=== PATIENT | male | born 1945 | race Caucasian/White ===

== ENCOUNTER → 2018-09-29 | Outpatient (CLI) | payer OTHER ==
--- NOTE | 2018-09-29 14:21 | 2DMMODE ---
[facility] [place] [address] 2 D/M-MODE ECHOCARDIOGRAM Name: BRYAN LIU Room #: REG [facility]#: [id number] ������������� Admission: 09/29/18 ������������� Attend Phys: Kingston Adair MD Discharge: ��� ������������� ��� Date of : 41 Date of Service: 09/29/18 1420 �� Report #: [id number] �������� ��������������������������������������������[id number] THIS REPORT FOR: //name// APPROVED REPORT Study performed: 09/29/2018 13:16:48 EXAM: Comprehensive 2D, Doppler, and color-flow Echocardiogram Patient Location: Echo lab Status: routine BSA: 1.83 HR: 59 bpm BP: 112/60 mmHg Rhythm: Atrial Fibrillation Other Information Study Quality: Adequate Technically limited study due to body habitus. Risk Factors: Cardiac Risk Factors: HTN, Hyperlipidemia, DM Indications Atrial Fibrillation 2D Dimensions IVSd: 10.44 (7-11mm) LVOT Diam: 19.00 (18-24mm) LVDd: 37.51 mm PWd: 10.44 (7-11mm) Ascending Ao: 30.77 (22-36mm) LVDs: 24.73 (25-40mm) Aortic Root: 31.10 mm LV Single Plane 4CH: 55.50 % Volumes Left Atrial Volume (Systole) Single Plane 4CH: 20.42 mL Aortic Valve AoV Peak Sd.: 1.21 m/s AO Peak Gr.: 5.87 mmHg LVOT Max P.99 mmHg LVOT Max V: 0.86 m/s YESENIA Vmax: 1.97 cm2 Pulmonary Valve [facility] [address] [place] [address] 2 D/M-MODE ECHOCARDIOGRAM Name: BRYAN LIU Room #: REG [facility]#: [id number] ������������� Admission: 09/29/18 ������������� Attend Phys: Kingston Adair MD Discharge: ��� ������������� ��� Date of : 41 Date of Service: 09/29/18 1420 �� Report #: [id number] �������� ��������������������������������������������[id number] PV Peak Sd.: 0.85 m/s PV Peak Gr.: 2.86 mmHg Tricuspid Valve TR Peak Sd.: 2.67 m/s RAP Estimate: 7.00 mmHg TR Peak Gr.: 28.51 mmHg PA Pressure: 36.00 mmHg Left Ventricle The left ventricle is normal size. There is normal LV segmental wall motion. There is normal left ventricular wall thickness. Left ventricular systolic function is normal. The left ventricular ejection fraction is within the normal range. LVEF is 55-60%. This study is not technically sufficient to allow evaluation of the LV diastolic function due to atrial fibrillation. Right Ventricle The right ventricle is normal size. The right ventricular systolic function is normal. Atria The left atrium size is normal. The right atrium size is normal. Aortic Valve Aortic valve is calcified. No aortic regurgitation is present. There is no aortic valvular stenosis. Mitral Valve The mitral valve is normal in structure. There is no mitral valve regurgitation noted. No evidence of mitral valve stenosis. Tricuspid Valve The tricuspid valve is normal in structure. Mild tricuspid regurgitation. Pulmonary artery pressure is 36 mmHg. Pulmonic Valve The pulmonary valve is normal in structure. There is no pulmonic valvular regurgitation. Great Vessels The aortic root is normal in size. IVC is normal in size and collapses >50% with inspiration. Pericardium There is no pericardial effusion. [facility] [place] [place] [address] 2 D/M-MODE ECHOCARDIOGRAM Name: BRYAN LIU Room #: REG [facility]#: [id number] ������������� Admission: 09/29/18 ������������� Attend Phys: Kingston Adair MD Discharge: ��� ������������� ��� Date of : 41 Date of Service: 09/29/18 142 �� Report #: [id number] �������� ��������������������������������������������[id number] <Conclusion> The left ventricle is normal size. There is normal left ventricular wall thickness. Left ventricular systolic function is normal. The right ventricle is normal size. The left atrium size is normal. The right atrium size is normal. Aortic valve is calcified. There is no mitral valve regurgitation noted. Mild tricuspid regurgitation. Pulmonary artery pressure is 36 mmHg. ��������������������������������������������� <ELECTRONICALLY SIGNED> ���������������������������������������� By: Kingston Adair MD ��������������������������������������������� 09/29/181419 19 1420 Kingston Adair MD /INF
== END ==
LOC: CV 13:04
DX: I08.2 Rheumatic disorders of both aortic and tricuspid valves (principal); I48.91 Unspecified atrial fibrillation; I10 Essential (primary) hypertension; E78.5 Hyperlipidemia, unspecified; E11.9 Type 2 diabetes mellitus without complications

== ENCOUNTER → 2018-10-03 | Outpatient (CLI) | payer OTHER | LOC: NUC 08:33 | DX: I48.91 Unspecified atrial fibrillation (principal); I25.119 Atherosclerotic heart disease of native coronary artery with unspecified angina pectoris; E78.5 Hyperlipidemia, unspecified; E11.9 Type 2 diabetes mellitus without complications; Z87.891 Personal history of nicotine dependence; Z79.84 Long term (current) use of oral hypoglycemic drugs; Z79.899 Other long term (current) drug therapy; Z82.49 Family history of ischemic heart disease and other diseases of the circulatory system ==